=== PATIENT | female | born 1970 | race Caucasian/White ===

== ENCOUNTER 2023-11-10 14:22 | Emergency (ER) | payer SELFPAY ==
[~2023-11-10] VITALS: Ht 149.9 cm; Wt 94.3 kg
[2023-11-10 14:57] VITALS: BP 130/71; PULSE 65; RESP 16; TEMP 97.9; O2SAT 99
[2023-11-10] MEDS: ALUMINUM HYD/MAG/SIMETHICONE 30 ML UDC PO ONE (16:33)
[2023-11-10] MEDS: ONDANSETRON 4 MG ODT PO ONE (16:33)
[2023-11-10 16:38] VITALS: BP 127/73; PULSE 67; RESP 18; TEMP 98; O2SAT 99
[2023-11-10 17:09] LABS: BILIRUBIN,URINE NEGATIVE (NEGATIVE); BLOOD, URINE TRACE-L (NEGATIVE); LEUKOCYTE ESTERASE ,URINE 1+ (NEGATIVE); NITRITE, URINE POSITIVE (NEGATIVE); PROTEIN,URINE TRACE (NEGATIVE); UGLUCOSE NEGATIVE (NEGATIVE); UROBILINOGEN,URINE 0.2 EU/dL (0.2 - 1)
[2023-11-10 17:18] LABS: APPEARANCE,URINE CLOUDY (CLEAR); COLOR,URINE AMBER (YELLOW)
[2023-11-10 17:20] LABS: BACTERIA,URINE 10-30 (MOD) /HPF (None Seen); MUCUS,URINE 2+ /LPF (None Seen); SQUAMOUS EPITHELIAL CELL,UR 0-3 (FEW) /LPF (0-3 (FEW))
[2023-11-10] MEDS ORDERED: ONDA-188 PO (18:02)
[2023-11-10] MEDS ORDERED: CEPH-588 PO (18:02)
[2023-11-10] MEDS: cephALEXin 500 MG CAP PO ONE (18:13)
== END 2023-11-10 18:12 | disposition home or self-care (01) ==
LOC: MED 14:22
DX: N39.0 Urinary tract infection, site not specified (principal); R11.10 Vomiting, unspecified; E11.9 Type 2 diabetes mellitus without complications; E03.9 Hypothyroidism, unspecified
CPT/HCPCS: 81001; 87086; 99283; Q0162